=== PATIENT | female | born 1940 | race Caucasian/White ===

== ENCOUNTER 2023-09-21 19:10 | Inpatient (IN) ==
[2023-09-21] MEDS ORDERED: IOPAMIDOL 100 ML BOTTLE IV ONE (19:11)
[2023-09-21] MEDS ORDERED: IPRATROPIUM/ALBUTEROL 3 ML AMPUL.NEB NEB ONE ×2 (19:23→23:39)
[2023-09-21 19:52] LABS: POC Calcium, Ionized 1.04 (1.16-1.32); POC Creatinine 0.6 (0.6-1.2); POC Potassium 7.1 (3.3-5.1)
[2023-09-21 20:17] LABS: Hemoglobin 14.5 g/dL (11.2-15.7); Mean Cell Volume 86.7 fL (80.0-100.0); Mean Corpuscular HGB Conc 32.2 g/dL (31.0-36.0); Platelet Count 214 K/mcL (140-440); RBC 5.19 M/mcL (3.59-5.38); Red Cell Distribution Width 14.6 % (11.5-14.5); WBC 14.4 K/mcL (4.5-11.0)
[2023-09-21] MEDS ORDERED: morphine 4 MG/ML VIAL IV ONE (20:25)
[2023-09-21 20:45] LABS: proBNP 486.5 pg/mL (<450.0)
[2023-09-21] MEDS ORDERED: methylPREDNISolone SOD SUCC 125 MG/2 ML VIAL IV ONE (20:52)
[2023-09-21 21:30] LABS: Band Neutrophils % 5 % (0-10); Eosinophils % (Manual) 1 % (0-7); Lymphocytes % 14 % (15-49); Monocytes % (Manual) 5 % (1-12); Platelet Estimate NORMAL (Normal); RBC Morphology NORMAL (Normal); Reactive Lymphocytes 1 % (0-2); Segmented Neutrophils % 74 % (38-78)
[2023-09-21 22:44] LABS: ALT/SGPT 14 U/L (<40); AST/SGOT 19 U/L (<32); Albumin 3.7 gm/dL (3.2-5.2); Albumin/Globulin Ratio 1.2 (1.0-2.3); Alkaline Phosphatase 19 U/L (39-117); Bilirubin,Total 0.6 mg/dL (0.1-1.0); Blood Urea Nitrogen 12 mg/dL (8-23); Calcium 8.6 mg/dL (8.6-10.4); Carbon Dioxide 26 mmol/L (22-30); Chloride 97 mmol/L (96-108); Globulin 3.1 gm/dL (2.2-3.7); Glomerular Filtration Rate 80; Glucose 171 mg/dL (70-105)
[2023-09-21] MEDS ORDERED: ALBUTEROL SULFATE 2.5 MG/3 ML NEBULIZER NEB PRN (23:25)
[2023-09-21] MEDS ORDERED: ACETAMINOPHEN 325 MG TABLET PO PRN (23:25)
[2023-09-21] MEDS ORDERED: SENNOSIDES 1 TABLET PO PRN (23:25)
[2023-09-21] MEDS ORDERED: ONDANSETRON 4 MG/2 ML VIAL IV PRN (23:25)
[2023-09-21] MEDS ORDERED: LACTULOSE 20 GM/30 ML ORAL.SOL PO PRN (23:25)
[2023-09-21] MEDS: IPRATROPIUM/ALBUTEROL 3 ML AMPUL.NEB NEB SCH (23:41)
[2023-09-22] MEDS ORDERED: IPRATROPIUM/ALBUTEROL 3 ML AMPUL.NEB NEB ONE (02:58)
[2023-09-22] MEDS: IPRATROPIUM/ALBUTEROL 3 ML AMPUL.NEB NEB SCH ×2 (03:03→06:56)
[2023-09-22] MEDS ORDERED: methylPREDNISolone SOD SUCC 125 MG/2 ML VIAL ONE (05:03)
[2023-09-22 05:43] LABS: Basophils # (Auto) 0.03 K/mcL (0.00-0.30); Basophils % (Auto) 0.3 % (0.0-2.0); Eosinophils # (Auto) 0.02 K/mcL (0.00-0.70); Eosinophils % (Auto) 0.2 % (0.0-7.0); Hematocrit 46.6 % (34.1-44.9); Hemoglobin 14.4 g/dL (11.2-15.7); Lymphocytes # (Auto) 1.35 K/mcL (1.50-4.80); Lymphocytes % (Auto) 12.5 % (15.5-49.0); Mean Cell Volume 88.9 fL (80.0-100.0); Mean Corpuscular HGB Conc 30.9 g/dL (31.0-36.0); Mean Platelet Volume 10.5 fL (8.8-12.5); Monocytes # (Auto) 0.12 K/mcL (0.10-0.90); Monocytes % (Auto) 1.1 % (1.0-12.0); Neutrophils % (Auto) 85.4 % (38.0-78.0); Platelet Count 224 K/mcL (140-440); RBC 5.24 M/mcL (3.59-5.38); Red Cell Distribution Width 14.1 % (11.5-14.5); WBC 10.8 K/mcL (4.5-11.0)
[2023-09-22] MEDS ORDERED: methylPREDNISolone SOD SUCC 125 MG/2 ML VIAL IV SCH (06:00)
[2023-09-22] MEDS ORDERED: 0.9 % SODIUM CHLORIDE 10 ML SYRINGE IV SCH (06:00)
[2023-09-22 06:21] LABS: ALT/SGPT 14 U/L (<40); AST/SGOT 17 U/L (<32); Albumin 3.6 gm/dL (3.2-5.2); Albumin/Globulin Ratio 1.1 (1.0-2.3); Alkaline Phosphatase 18 U/L (39-117); Bilirubin,Direct < 0.2 mg/dL (0-0.3); Bilirubin,Total 0.4 mg/dL (0.1-1.0); Blood Urea Nitrogen 13 mg/dL (8-23); Calcium 8.9 mg/dL (8.6-10.4); Carbon Dioxide 21 mmol/L (22-30); Chloride 98 mmol/L (96-108); Globulin 3.4 gm/dL (2.2-3.7); Glomerular Filtration Rate 80; Glucose 294 mg/dL (70-105); Lactate Dehydrogenase 195 U/L (135-225); Phosphorous 4.1 mg/dL (2.5-4.5); Triglycerides 67 mg/dL (<150); Uric Acid 4.7 mg/dL (2.5-8.0)
[2023-09-22] MEDS ORDERED: predniSONE 20 MG TABLET PO SCH (08:00)
[2023-09-22 08:33] LABS: ALT/SGPT 14 U/L (<40); AST/SGOT 13 U/L (<32); Albumin 3.6 gm/dL (3.2-5.2); Albumin/Globulin Ratio 1.2 (1.0-2.3); Alkaline Phosphatase 15 U/L (39-117); Bilirubin,Direct < 0.2 mg/dL (0-0.3); Bilirubin,Total 0.3 mg/dL (0.1-1.0); Blood Urea Nitrogen 12 mg/dL (8-23); Calcium 8.6 mg/dL (8.6-10.4); Carbon Dioxide 25 mmol/L (22-30); Chloride 97 mmol/L (96-108); Globulin 2.9 gm/dL (2.2-3.7); Glomerular Filtration Rate 84; Glucose 289 mg/dL (70-105); Lactate Dehydrogenase 158 U/L (135-225); Phosphorous 3.1 mg/dL (2.5-4.5); Triglycerides 65 mg/dL (<150); Uric Acid 4.4 mg/dL (2.5-8.0)
[2023-09-22] MEDS ORDERED: ENOXAPARIN 40 MG/0.4 ML SYRINGE SQ SCH (09:00)
[2023-09-22] MEDS ORDERED: DOCUSATE SODIUM 100 MG CAPSULE PO SCH (09:00)
[2023-09-22] MEDS ORDERED: HYDROcodone/APAP 10/325MG TABLET PO PRN (09:53)
[2023-09-22] MEDS ORDERED: IPRATROPIUM/ALBUTEROL 3 ML AMPUL.NEB NEB PRN (09:54)
[2023-09-22] MEDS ORDERED: amLODIPine 5 MG TABLET PO SCH (09:55)
[2023-09-22] MEDS ORDERED: GABAPENTIN 300 MG CAPSULE PO SCH (09:55)
[2023-09-22] MEDS ORDERED: traMADol 50 MG TABLET PO PRN (10:04)
[2023-09-22] MEDS ORDERED: NITROFURANTOIN SR 100 MG CAPSULE PO SCH (21:00)
[2023-09-23] MEDS ORDERED: TAMOXIFEN 10 MG TABLET PO SCH (09:00)
[2023-09-23] MEDS ORDERED: LOSARTAN 25 MG TABLET PO SCH (09:00)
[2023-09-23] MEDS ORDERED: Mirabegron [Myrbetriq] 50 mg tablet extended release PO SCH (09:00)
[2023-09-23] MEDS ORDERED: OXYBUTYNIN CHLORIDE 5 MG TAB.XL.24H PO SCH (09:00)
[2023-09-23] MEDS ORDERED: glipiZIDE 2.5 MG TAB.XL.24H PO SCH (09:00)
== END 2023-09-22 13:38 | disposition home or self-care (01) | DRG 189 ==
LOC: ED 19:10 → ICU 23:17
PROVIDERS: ADMIT Internal Medicine; ATTEND Internal Medicine

== ENCOUNTER 2024-06-20 17:47 | Inpatient (IN) ==
[2024-06-20] MEDS ORDERED: IOPAMIDOL 100 ML BOTTLE IV ONE (17:48)
[2024-06-20 19:18] LABS: Basophils # (Auto) 0.02 K/mcL (0.00-0.30); Basophils % (Auto) 0.2 % (0.0-2.0); Eosinophils # (Auto) 0.03 K/mcL (0.00-0.70); Eosinophils % (Auto) 0.4 % (0.0-7.0); Hematocrit 42.4 % (34.1-44.9); Lymphocytes # (Auto) 2.27 K/mcL (1.50-4.80); Lymphocytes % (Auto) 28.2 % (15.5-49.0); Mean Cell Volume 90.2 fL (80.0-100.0); Mean Corpuscular HGB Conc 30.7 g/dL (31.0-36.0); Monocytes # (Auto) 0.71 K/mcL (0.10-0.90); Monocytes % (Auto) 8.8 % (1.0-12.0); Platelet Count 185 K/mcL (140-440); Red Cell Distribution Width 13.4 % (11.5-14.5); WBC 8.1 K/mcL (4.5-11.0)
[2024-06-20 19:37] LABS: ALT/SGPT 6 U/L (<40); AST/SGOT 18 U/L (<32); Albumin 4.1 gm/dL (3.2-5.2); Albumin/Globulin Ratio 1.5 (1.0-2.3); Alkaline Phosphatase 16 U/L (39-117); Bilirubin,Total 0.3 mg/dL (0.1-1.0); Blood Urea Nitrogen 20 mg/dL (8-23); Calcium 9.1 mg/dL (8.6-10.4); Carbon Dioxide 23 mmol/L (22-30); Chloride 101 mmol/L (96-108); Globulin 2.7 gm/dL (2.2-3.7); Glomerular Filtration Rate 52; Glucose 120 mg/dL (70-105); Potassium 4.1 mmol/L (3.3-5.1); Sodium 135 mmol/L (133-145)
[2024-06-20 20:04] LABS: Appearance,Urine Slightly Cloudy (Clear); Bilirubin,Urine Negative (Negative); Color,Urine Yellow; Culture Indicated,Urine No; Glucose,Urine (UA) Negative (Negative); Ketones,Urine Negative (Negative); Leukocyte Esterase,Urine Negative /uL (Negative); Nitrate,Urine Negative (Negative); PH,Urine 7.5 (5.0-9.0); Protein,Urine >=300 mg/dL (Negative); Urine Amorphous Crystals Few /hpf; Urine Blood Moderate ery/mcL (Negative); Urine RBC 7 /hpf (0-3); Urine Squamous Epithelial Cell 10 /hpf (0-4); Urine WBC 15 /hpf (0-4); Urobilinogen,Urine Normal
[2024-06-20] MEDS: DEXAMETHASONE 10 MG/ML VIAL IV ONE (20:30)
[2024-06-20] MEDS ORDERED: IPRATROPIUM/ALBUTEROL 3 ML AMPUL.NEB NEB PRN (23:30)
[2024-06-20] MEDS ORDERED: ONDANSETRON 4 MG/2 ML VIAL IV PRN (23:30)
[2024-06-20] MEDS ORDERED: guaiFENesin/DEXTROMETHORPHAN 5ML UD CUP PO PRN (23:30)
[2024-06-21] MEDS: REMDESIVIR 200 MG in 0.9 % SODIUM CHLORIDE 250 ML IV ONE (00:57)
[2024-06-21 06:39] LABS: Basophils # (Auto) 0.01 K/mcL (0.00-0.30); Basophils % (Auto) 0.2 % (0.0-2.0); Eosinophils # (Auto) 0 K/mcL (0.00-0.70); Eosinophils % (Auto) 0 % (0.0-7.0); Hematocrit 40.1 % (34.1-44.9); Hemoglobin 12.7 g/dL (11.2-15.7); Lymphocytes # (Auto) 2.26 K/mcL (1.50-4.80); Mean Cell Volume 87.9 fL (80.0-100.0); Mean Corpuscular HGB Conc 31.7 g/dL (31.0-36.0); Mean Platelet Volume 11.3 fL (8.8-12.5); Monocytes # (Auto) 0.12 K/mcL (0.10-0.90); Neutrophils % (Auto) 60.5 % (38.0-78.0); Platelet Count 184 K/mcL (140-440); RBC 4.56 M/mcL (3.59-5.38); Red Cell Distribution Width 13.4 % (11.5-14.5); WBC 6.1 K/mcL (4.5-11.0)
[2024-06-21 07:20] LABS: ALT/SGPT 6 U/L (<40); AST/SGOT 15 U/L (<32); Albumin 3.9 gm/dL (3.2-5.2); Albumin/Globulin Ratio 1.6 (1.0-2.3); Alkaline Phosphatase 15 U/L (39-117); Bilirubin,Total 0.2 mg/dL (0.1-1.0); Blood Urea Nitrogen 17 mg/dL (8-23); Calcium 9.1 mg/dL (8.6-10.4); Carbon Dioxide 21 mmol/L (22-30); Chloride 104 mmol/L (96-108); Globulin 2.4 gm/dL (2.2-3.7); Glomerular Filtration Rate 59; Glucose 209 mg/dL (70-105); Sodium 137 mmol/L (133-145)
[2024-06-21 07:41] LABS: Estimated Average Glucose(eAG) 154 mg/dL
[2024-06-21] MEDS: 0.9 % SODIUM CHLORIDE 10 ML SYRINGE IV SCH (08:30)
[2024-06-21] MEDS: DEXAMETHASONE 4 MG TABLET PO SCH (08:31)
[2024-06-21] MEDS: PANTOPRAZOLE 40 MG TABLET PO SCH (08:31)
[2024-06-21] MEDS: DOCUSATE SODIUM 100 MG CAPSULE PO SCH (08:31)
[2024-06-21] MEDS: ENOXAPARIN 40 MG/0.4 ML SYRINGE SQ SCH (08:32)
[2024-06-21] MEDS: ACETAMINOPHEN 325 MG TABLET PO PRN (08:57)
[2024-06-21] MEDS: INSULIN LISPRO 1 UNIT/0.01 ML UNIT SQ SCH (08:58)
[2024-06-21] MEDS ORDERED: IPRATROPIUM 2.5 ML AMPUL.NEB INH PRN (12:26)
[2024-06-21] MEDS ORDERED: ALBUTEROL SULFATE 60 PUFF INHALER INH PRN (12:31)
[2024-06-21] MEDS: REMDESIVIR 100 MG in 0.9 % SODIUM CHLORIDE 250 ML IV SCH (16:04)
[2024-06-21] MEDS: SENNOSIDES 1 TABLET PO SCH (20:29)
[2024-06-21] MEDS: ATORVASTATIN 40 MG TABLET PO SCH (20:29)
[2024-06-21] MEDS: Budesonide-Glycopyr-Formoterol [Breztri Aerosphere] Inhaler INH SCH (20:29)
[2024-06-21] MEDS: METOPROLOL SUCCINATE 50 MG TAB.XL.24H PO SCH (20:34)
[2024-06-21] MEDS: NITROFURANTOIN SR 100 MG CAPSULE PO SCH (20:34)
[2024-06-22 06:53] LABS: Basophils # (Auto) 0 K/mcL (0.00-0.30); Basophils % (Auto) 0 % (0.0-2.0); Eosinophils # (Auto) 0 K/mcL (0.00-0.70); Eosinophils % (Auto) 0 % (0.0-7.0); Hematocrit 43.1 % (34.1-44.9); Lymphocytes # (Auto) 3.32 K/mcL (1.50-4.80); Lymphocytes % (Auto) 25.5 % (15.5-49.0); Mean Cell Volume 92.7 fL (80.0-100.0); Mean Corpuscular HGB Conc 30.2 g/dL (31.0-36.0); Mean Platelet Volume 11.3 fL (8.8-12.5); Monocytes # (Auto) 0.89 K/mcL (0.10-0.90); Monocytes % (Auto) 6.8 % (1.0-12.0); Neutrophils % (Auto) 67.4 % (38.0-78.0); Platelet Count 190 K/mcL (140-440); RBC 4.65 M/mcL (3.59-5.38); Red Cell Distribution Width 13.7 % (11.5-14.5)
[2024-06-22 07:25] LABS: ALT/SGPT 6 U/L (<40); AST/SGOT 19 U/L (<32); Albumin 3.5 gm/dL (3.2-5.2); Albumin/Globulin Ratio 1.3 (1.0-2.3); Alkaline Phosphatase 14 U/L (39-117); Bilirubin,Total 0.2 mg/dL (0.1-1.0); Blood Urea Nitrogen 21 mg/dL (8-23); Calcium 9.1 mg/dL (8.6-10.4); Carbon Dioxide 23 mmol/L (22-30); Chloride 107 mmol/L (96-108); Globulin 2.7 gm/dL (2.2-3.7); Glomerular Filtration Rate 52; Glucose 156 mg/dL (70-105); Potassium 3.9 mmol/L (3.3-5.1); Sodium 141 mmol/L (133-145)
[2024-06-22] MEDS: traMADol 50 MG TABLET PO PRN (08:09)
[2024-06-22] MEDS ORDERED: DOCUSATE SODIUM 100 MG CAPSULE PO SCH (09:00)
[2024-06-22] MEDS: glipiZIDE 2.5 MG TAB.XL.24H PO SCH (11:56)
[2024-06-22] MEDS: amLODIPine 5 MG TABLET PO SCH (11:57)
[2024-06-22] MEDS: FUROSEMIDE 40 MG TABLET PO SCH (11:57)
[2024-06-22] MEDS: ASPIRIN 81 MG TAB.CHEW PO SCH (11:58)
[2024-06-22] MEDS: LOSARTAN 25 MG TABLET PO SCH (11:58)
[2024-06-22] MEDS: TAMOXIFEN 10 MG TABLET PO SCH (11:59)
[2024-06-22] MEDS: Mirabegron [Myrbetriq] 50 mg tablet extended release PO SCH (12:00)
== END 2024-06-22 16:25 | disposition home or self-care (01) | DRG 177 ==
LOC: ED 17:47 → MEDSUR 23:25
PROVIDERS: ADMIT Internal Medicine; ATTEND Internal Medicine